=== PATIENT | female | born 1985 | race Caucasian/White ===

== ENCOUNTER 2019-08-22 11:43 | Emergency (ER) | payer OTHER ==
[~2019-08-22] VITALS: Ht 165.1 cm; Wt 74.0 kg
[2019-08-22] MEDS ORDERED: IV NORMAL SALINE 1,000ML 1,000 ML IV SCH (12:03)
[2019-08-22 12:21] LABS: BASO % 2 % (0-3); EOS % 1 % (0-3); HEMATOCRIT 40.9 % (36.0-47.0); HEMOGLOBIN 14.3 g/dL (12.0-15.5); LYMPH # 0.6 x10^3/uL (1.0-4.8); LYMPH % 28 % (24-48); MEAN CORPUSCULAR HEMOGLOBIN 32 pg (25-35); MEAN CORPUSCULAR HGB CONC 35 g/dL (31-37); MEAN CORPUSCULAR VOLUME 91 fL (79-100); MONO # 0.6 x10^3/uL (0.0-1.1); MONO % 25 % (0-9); NEUT % 45 % (31-73); PLATELET COUNT 116 x10^3/uL (140-400); RED BLOOD COUNT 4.48 x10^6/uL (3.50-5.40); RED CELL DISTRIBUTION WIDTH 12.8 % (11.5-14.5); WHITE BLOOD COUNT 2.3 x10^3/uL (4.0-11.0)
[2019-08-22 12:27] LABS: CALCIUM 8.8 mg/dL (8.5-10.1); CREATININE 0.8 mg/dL (0.6-1.0); GFR 81.2; POTASSIUM 3.8 mmol/L (3.5-5.1)
[2019-08-22 12:57] VITALS: BP 142/95
--- NOTE | 2019-08-22 12:59 | PHYS DOC ---
Past History Past Medical History: No Pertinent History Past Surgical History: Tonsillectomy, Other Additional Past Surgical Histo: [place] Alcohol Use: Occasionally Drug Use: None Adult General Chief Complaint Chief Complaint: FLU SYMPTOM HPI HPI Patient is a 34-year-old female who presents with complaint of flu symptoms. Patient had been seen at urgent care yesterday and was diagnosed with influenza and treated with Tamiflu. She was instructed today to come into emergency room for further evaluation due to abnormal findings on blood work. Patient is not sure what those findings were. She also complains of a rash that started since yesterday. She denies any chest pain or shortness of breath. She does indicate that she has also had a cough that started since chest today.[] Review of Systems Review of Systems Constitutional: Complains of fever and chills [] Respiratory: Complains of cough without shortness of breath [] Cardiovascular: No additional information not addressed in HPI [] GI: Denies abdominal pain, nausea, vomiting or diarrhea [] Integument: Complains of diffuse rash[] Neurologic: Denies headache, focal weakness or sensory changes [] All other systems were reviewed and found to be within normal limits, except as documented in this note. Current Medications Current Medications Current Medications Medications (Trade) Dose Ordered Sig/Mar[place]ruz Start Time Stop Time Status Last Admin Dose Admin Sodium Chloride 1,000 ml @ 1,000 mls/hr Q1H 08/22/19 12:03 08/22/19 13:02 08/22/19 12:03 1,000 MLS/HR Allergies Allergies Allergies Coded Allergies Type Severity Reaction Last Updated Verified No Known Drug Allergies 08/22/19 No Physical Exam Physical Exam Constitutional: Well developed, well nourished, no acute distress, non-toxic appearance. [] HENT: Normocephalic, atraumatic, bilateral external ears normal, oropharynx moist, no oral exudates, nose normal. [] Eyes: PERRLA, EOMI, conjunctiva normal, no discharge. [] Neck: Normal range of motion, no tenderness, supple, no stridor. [] Cardiovascular: Regular rate and rhythm[] Lungs & Thorax: Bilateral breath sounds clear to auscultation [] Abdomen: Bowel sounds normal, soft, no tenderness. [] Skin: Warm, dry, with diffuse erythematous, papular rash. [] Extremities: No tenderness, no cyanosis, no clubbing, ROM intact. [] Neurologic: Alert and oriented X 3, no focal deficits noted. [] Current Patient Data Vital Signs Vital Signs Date Time Temp Pulse Resp B/P (MAP) Pulse Ox O2 Delivery O2 Flow Rate FiO2 08/22/19 11:52 98.4 125 18 99 Room Air Lab Results Laboratory Tests Test 08/22/19 12:08 White Blood Count 2.3 x10^3/uL (4.0-11.0) L Red Blood Count 4.48 x10^6/uL (3.50-5.40) Hemoglobin 14.3 g/dL (12.0-15.5) Hematocrit 40.9 % (36.0-47.0) Mean Corpuscular Volume 91 fL (79-100) Mean Corpuscular Hemoglobin 32 pg (25-35) Mean Corpuscular Hemoglobin Concent 35 g/dL (31-37) Red Cell Distribution Width 12.8 % (11.5-14.5) Platelet Count 116 x10^3/uL (140-400) L Neutrophils (%) (Auto) 45 % (31-73) Lymphocytes (%) (Auto) 28 % (24-48) Monocytes (%) (Auto) 25 % (0-9) H Eosinophils (%) (Auto) 1 % (0-3) Basophils (%) (Auto) 2 % (0-3) Neutrophils # (Auto) 1.0 x10^3uL (1.8-7.7) L Lymphocytes # (Auto) 0.6 x10^3/uL (1.0-4.8) L Monocytes # (Auto) 0.6 x10^3/uL (0.0-1.1) Eosinophils # (Auto) 0.0 x10^3/uL (0.0-0.7) Basophils # (Auto) 0.0 x10^3/uL (0.0-0.2) Platelet Estimate Pending Sodium Level 141 mmol/L (136-145) Potassium Level 3.8 mmol/L (3.5-5.1) Chloride Level 104 mmol/L (98-107) Carbon Dioxide Level 24 mmol/L (21-32) Anion Gap 13 (6-14) Blood Urea Nitrogen 8 mg/dL (7-20) Creatinine 0.8 mg/dL (0.6-1.0) Estimated GFR (Cockcroft-Gault) 81.2 Glucose Level 103 mg/dL (70-99) H Calcium Level 8.8 mg/dL (8.5-10.1) EKG EKG [] Radiology/Procedures Radiology/Procedures [] Course & Med Decision Making Course & Med Decision Making Pertinent Labs and Imaging studies reviewed. (See chart for details) [] Dragon Disclaimer Dragon Disclaimer This electronic medical record was generated, in whole or in part, using a voice recognition dictation system. Departure Departure: Impression: Primary Impression: Influenza Disposition: HOME, SELF-CARE Condition: STABLE Patient Instructions: Influenza, Adult Scripts Azithromycin (ZITHROMAX) 250 Mg Tablet 1 PKG PO UD for infection, #6 TAB Prov: ANITA CERNA Jr. DO 08/22/19 ANITA CERNA Jr. DO Aug 22, 2019 12:59
[2019-08-22] MEDS ORDERED: AZIT250T PO (13:29)
[2019-08-22 14:43] LABS: % ATYL 6 % (0-0); % BANDS 4 % (0-9); % BASOS 1 % (0-3); % EOS 4 % (0-5); % LYMPHS 26 % (24-48); % MONOS 20 % (0-10); % SEGS 39 % (35-66)
[2019-08-22 14:48] LABS: PLT ESTIMATE DECREASED (ADEQUATE)
== END 2019-08-22 13:37 | disposition home or self-care (01) ==
LOC: ER 11:43
DX: J11.1 Influenza due to unidentified influenza virus with other respiratory manifestations (principal); Z90.89 Acquired absence of other organs
CPT/HCPCS: 36415; 80048; 85007; 85025; 99284-25; J7030